=== PATIENT | female | born 1950 | race Caucasian/White ===

== ENCOUNTER 2023-04-24 14:22 | Emergency (ER) | payer MEDICARE, MEDICAID, OTHER ==
[~2023-04-24] VITALS: Ht 157.5 cm; Wt 80.7 kg
--- NOTE | 2023-04-24 14:55 | ED Abdominal Pain ---
General Chief Complaint: General Problems/Pain Stated Complaint: URINARY/BACK/ABD PAIN Nursing Triage Note: PT AMBULATE TO ROOM [facility] WITHOUT DIFFICULTY WITH C/O "PAIN IN BOWELS AND FEMALE ORGANS" X3 MONTHS. PT REPORTS NAUSEA AND DENIES VOMITING. PT REPORTS BURNING WITH URINATION, BLOOD IN URINE AND STOOL. PT SENT FROM [facility]. [facility] PROVIDER STATED THAT SHE WAS UNABLE TO DO ANY TYPE OF EXAMINATION BECAUSE THE PATIENT WAS IN PAIN. History of Present Illness Date Seen by Provider: Apr 24, 2023 Time Seen by Provider: 14:31 Initial Comments 69-year-old female with PMH of HTN/DM2/HLD/CAD with stents placed last y ear/hernia, is sent here from [facility] with complaints of diffuse abdominal and bilateral flank pain with dysuria and hematuria for the past 3 months and has worsened in intensity over the past 3 days. Patient's pain level in the ER is 6/10. Denies fever and chills, diarrhea, constipation, chest pain, palpitations, shortness of breath, nausea and vomiting. Allergies and Home Medications Allergies Coded Allergies: No Allergy Information Available (Unverified , 04/24/23) Patient Home Medication List Home Medication List Reviewed: Yes Review of Systems Review of Systems Constitutional: no symptoms reported EENTM: No Symptoms Reported Respiratory: No Symptoms Reported Cardiovascular: No Symptoms Reported Gastrointestinal: Abdominal Pain Genitourinary: No Symptoms Reported, See HPI, Burning, Flank Pain Musculoskeletal: no symptoms reported Skin: no symptoms reported Psychiatric/Neurological: No Symptoms Reported Endocrine: No Symptoms Reported Hematologic/Lymphatic: No Symptoms Reported Past Ckotqks-Iixarp-Njzwpw Hx Patient Social History Tobacco Use?: No Smoking Status: Never a Smoker Smokeless Tobacco Frequency: Never a User Use of E-Cig and/or Vaping dev: No Use of E-Cig and/or Vaping Chance: Never a User Substance use?: No Alcohol Use?: No Pt feels they are or have been: No Physical Exam Vital Signs Vital Signs - First Documented 04/24/23 14:26 Temp 37.5 Pulse 69 Resp 17 B/P (MAP) 171/92 (118) O2 Delivery Room Air Capillary Refill : Less Than 3 Seconds Height/Weight/BMI Height: '" Weight: lbs. oz. kg; 32.00 BMI Method: General Appearance: WD/WN, no apparent distress (Patient appears comfortable and does not seem to be in any distress) HEENT: PERRL/EOMI Neck: non-tender, full range of motion Respiratory: chest non-tender, lungs clear, normal breath sounds Cardiovascular: regular rate, rhythm Gastrointestinal: normal bowel sounds, soft, no organomegaly, tenderness (Mainly in the suprapubic region, but also mild diffuse tenderness as well. Bilateral CVA tenderness present as well) Extremities: normal range of motion, normal inspection Back: CVA tenderness (R), CVA tenderness (L) Neurologic/Psychiatric: alert, normal mood/affect, oriented x 3 Skin: normal color Lymphatic: no adenopathy Focused Exam Lactate Level 04/24/23 14:45: Lactic Acid Level 1.45 Lactic Acid Level Laboratory Tests Test 04/24/23 14:45 Lactic Acid Level 1.45 MMOL/L (0.50-2.00) Progress/Results/Core Measures Results/Orders Lab Results Laboratory Tests Test 04/24/23 14:45 04/24/23 15:52 Range/Units White Blood Count 14.4 H 4.3-11.0 10^3/uL Red Blood Count 3.52 L 3.80-5.11 10^6/uL Hemoglobin 9.4 L 11.5-16.0 g/dL Hematocrit 31 L 35-52 % Mean Corpuscular Volume 88 80-99 fL Mean Corpuscular Hemoglobin 27 25-34 pg Mean Corpuscular Hemoglobin Concent 30 L 32-36 g/dL Red Cell Distribution Width 17.2 H 10.0-14.5 % Platelet Count 360 130-400 10^3/uL Mean Platelet Volume 9.7 9.0-12.2 fL Immature Granulocyte % (Auto) 1 % Neutrophils (%) (Auto) 80 H 42-75 % Lymphocytes (%) (Auto) 12 12-44 % Monocytes (%) (Auto) 7 0-12 % Eosinophils (%) (Auto) 0 0-10 % Basophils (%) (Auto) 0 0-10 % Neutrophils # (Auto) 11.5 H 1.8-7.8 10^3/uL Lymphocytes # (Auto) 1.7 1.0-4.0 10^3/uL Monocytes # (Auto) 1.0 0.0-1.0 10^3/uL Eosinophils # (Auto) 0.1 0.0-0.3 10^3/uL Basophils # (Auto) 0.0 0.0-0.1 10^3/uL Immature Granulocyte # (Auto) 0.1 0.0-0.1 10^3/uL Neutrophils % (Manual) 81 % Lymphocytes % (Manual) 10 % Monocytes % (Manual) 5 % Eosinophils % (Manual) 1 % Band Neutrophils 3 % Platelet Estimate NORMAL Polychromasia SLIGHT Microcytosis SLIGHT Macrocytosis SLIGHT Prothrombin Time 12.7 12.2-14.7 SEC INR Comment 0.9 0.8-1.4 Activated Partial Thromboplast Time 32 24-35 SEC Sodium Level 138 135-145 MMOL/L Potassium Level 3.9 3.6-5.0 MMOL/L Chloride Level 103 98-107 MMOL/L Carbon Dioxide Level 21 21-32 MMOL/L Anion Gap 14 5-14 MMOL/L Blood Urea Nitrogen 14 7-18 MG/DL Creatinine 0.79 0.60-1.30 MG/DL Estimat Glomerular Filtration Rate 79 BUN/Creatinine Ratio 18 Glucose Level 173 H 70-105 MG/DL Lactic Acid Level 1.45 0.50-2.00 MMOL/L Calcium Level 9.1 8.5-10.1 MG/DL Corrected Calcium 9.2 8.5-10.1 MG/DL Magnesium Level 2.0 1.6-2.4 MG/DL Total Bilirubin 0.2 0.1-1.0 MG/DL Aspartate Amino Transf (AST/SGOT) 12 5-34 U/L Alanine Aminotransferase (ALT/SGPT) 9 0-55 U/L Alkaline Phosphatase 103 40-136 U/L Total Protein 6.5 6.4-8.2 GM/DL Albumin 3.9 3.2-4.5 GM/DL Lipase 19 8-78 U/L Urine Color YELLOW Urine Clarity SL CLOUDY Urine pH 5.5 5-9 Urine Specific [place] 1.015 L 1.016-1.022 Urine Protein NEGATIVE NEGATIVE Urine Glucose (UA) 3+ H NEGATIVE Urine Ketones NEGATIVE NEGATIVE Urine Nitrite NEGATIVE NEGATIVE Urine Bilirubin NEGATIVE NEGATIVE Urine Urobilinogen 0.2 < = 1.0 MG/DL Urine Leukocyte Esterase 1+ H NEGATIVE Urine RBC (Auto) NEGATIVE NEGATIVE Urine RBC NONE /HPF Urine WBC 25-50 H /HPF Urine Squamous Epithelial Cells 5-10 /HPF Urine Crystals NONE /LPF Urine Bacteria TRACE /HPF Urine Casts NONE /LPF Urine Mucus SMALL H /LPF Urine Culture Indicated YES Urine Opiates Screen NEGATIVE NEGATIVE Urine Oxycodone Screen NEGATIVE NEGATIVE Urine Methadone Screen NEGATIVE NEGATIVE Urine Propoxyphene Screen NEGATIVE NEGATIVE Urine Barbiturates Screen NEGATIVE NEGATIVE Ur Tricyclic Antidepressants Screen NEGATIVE NEGATIVE Urine Phencyclidine Screen NEGATIVE NEGATIVE Urine Amphetamines Screen NEGATIVE NEGATIVE Urine Methamphetamines Screen NEGATIVE NEGATIVE Urine Benzodiazepines Screen NEGATIVE NEGATIVE Urine Cocaine Screen NEGATIVE NEGATIVE Urine Cannabinoids Screen NEGATIVE NEGATIVE My Orders Orders - ASHLEY ELY MD Drug Screen Stat (Urine) (04/24/23 14:32) Ua Culture If Indicated (04/24/23 14:32) Cbc With Automated Diff (04/24/23 14:46) Comprehensive Metabolic Panel (04/24/23 14:46) Lactic Acid Analyzer (04/24/23 14:46) Lipase (04/24/23 14:46) Magnesium (04/24/23 14:46) Protime With Inr (04/24/23 14:46) Partial Thromboplastin Time (04/24/23 14:46) Ct Abdomen/Pelvis W (04/24/23 14:47) Manual Differential (04/24/23 14:45) Iohexol Injection (Omnipaque 350 Mg/Ml 1 (04/24/23 15:45) Received Contrast (Hold Metformin- Contr (04/24/23 15:45) Ns (Ivpb) (Sodium Chloride 0.9% Ivpb Bag (04/24/23 15:45) Urine Culture (04/24/23 15:52) Vital Signs/I&O 04/24/23 14:26 Temp 37.5 Pulse 69 Resp 17 B/P (MAP) 171/92 (118) O2 Delivery Room Air Blood Pressure Mean: 118 Progress Progress Note : Progress Note 1. ACUTE ON CHRONIC DIVERTICULITIS & ACUTE CYSTITIS WITHOUT HEMATURIA: - CT ABD/ PELVIS: Acute sigmoid diverticulitis without abscess, obstruction,free air, or fistula. Renal cysts with no hydronephrosis or acute urinary tract pathology. - UA: positive for leukocyte esterase, WBC, trace bacteria - UDS negative - CBC: WBC is elevated at 14.4 with a left shift - CMP: unremarkable - Lipase negative - Toradol 15mg iv for pain, with improvement of symptoms -Prescriptions given for Bactrim DS and Flagyl twice daily for 10 days. This will cover both the diverticulitis and the UTI. -Advised liquid diet and adequate hydration -Follow-up with general surgery clinic in 7 to 10 days. Patient will be making an appointment at [facility]. -The patient was seen in the ED, and treated appropriately to presentation at a specific point in time. Patient is informed that there is a possibility that disease and illness can evolve and change in acuity rapidly or slowly after patient is discharged from the ER. Precautionary advice given to the patient for immediate return to ER if symptoms worsen or do not resolve, and to seek emergency care sooner rather than later. Pt also advised on the importance of PCP follow up and compliance with management and follow up plan with PCP and/or specialist, as this is part of the management plan. Pt verbally expressed understanding. Diagnostic Imaging Diagonstic Imaging: CT Plain Films/CT/US/NM/MRI: abdomen, pelvis Comments [facility] [employer] [facility] [place], [place] NAME: MICHELLE ATKINSON [facility] REC#: [id number] PT STATUS: REG ER : 1950 PHYSICIAN: ASHLEY ELY MD ADMIT DATE: 04/24/23/ER FS Draft Date of Exam:04/24/23 CT ABDOMEN/PELVIS W PROCEDURE: CT abdomen and pelvis with contrast. TECHNIQUE: Multiple contiguous axial images were obtained through the abdomen and pelvis after administration of intravenous contrast. Auto Exposure Controls were utilized during the CT exam to meet ALARA standards for radiation dose reduction. All CT scans use one or more of the following dose optimizing techniques: automated exposure control, MA and/or KvP adjustment based on patient size and exam type or iterative reconstruction. INDICATION: 3 month history of bilateral flank pain. FINDINGS: The findings are most consistent with acute sigmoid diverticulitis at the midline pelvis involving its lower 3rd. There is perisigmoidal stranding, edema, and a thickened inflamed diverticulum directed anteriorly. No extraluminal air or findings of transmural perforation. No findings of fistula to the bladder or other fistula. No abscess or drainable fluid collection. The urinary tracts are unobstructed with multiple right renal cortical and parapelvic cysts. The liver, gallbladder, bile ducts, spleen, adrenals, and pancreas are negative. There is a small hiatal hernia. There are nonaneurysmal aortoiliac atherosclerotic vascular calcifications. No features of acute end organ ischemia. There is rectus diastasis with prior surgical repair of the infraumbilical midline anterior abdominal wall with nonobstructing ventral hernia inferiorly. IMPRESSION: 1. Acute sigmoid diverticulitis without abscess, obstruction, free air, or fistula. 2. Renal cysts with no hydronephrosis or acute urinary tract pathology. Dictated on workstation # [id number] Dict: 04/24/23 1557 Trans: 04/24/23 1605 [id number] Interpreted by: LIZET ORTEGA Electronically signed by: Departure Impression Primary Impression: Acute diverticulitis of intestine Additional Impression: Acute cystitis without hematuria Disposition: HOME, SELF-CARE Condition: Stable Departure-Patient Inst. Referrals: CRISPIN WILCOX MD (PCP) Primary Care Physician Patient Instructions: Urinary Tract Infection, Adult (DC), Diverticulitis (DC) Add. Discharge Instructions: -Prescriptions given for Bactrim DS and Flagyl twice daily for 10 days -Advised liquid diet and adequate hydration -Follow-up with general surgery clinic in 7 to 10 days. Patient will be making an appointment at [facility]. All discharge instructions reviewed with patient and/or family. Voiced understanding. Scripts Metronidazole (Metronidazole) 500 Mg Tablet 500 MG PO BID for 10 Days, #20 TAB Prov: ASHLEY ELY MD 04/24/23 Sulfamethoxazole/Trimethoprim (Bactrim Ds Tablet) 1 Each Tablet 1 EACH PO BID for 10 Days, #20 TAB Prov: ASHLEY ELY MD 04/24/23 ASHLEY ELY MD Apr 24, 2023 14:55
[2023-04-24 15:07] LABS: BASOPHILS % (AUTO) 0 % (0-10); EOSINOPHILS # (AUTO) 0.1 10^3/uL (0.0-0.3); EOSINOPHILS % (AUTO) 0 % (0-10); HEMATOCRIT 31 % (35-52); HEMOGLOBIN 9.4 g/dL (11.5-16.0); LYMPHOCYTES # (AUTO) 1.7 10^3/uL (1.0-4.0); LYMPHOCYTES % (AUTO) 12 % (12-44); MEAN CORPUSCULAR HEMOGLOBIN 27 pg (25-34); MEAN CORPUSCULAR HGB CONC 30 g/dL (32-36); MEAN CORPUSCULAR VOLUME 88 fL (80-99); MEAN PLATELET VOLUME 9.7 fL (9.0-12.2); MONOCYTES % (AUTO) 7 % (0-12); NEUTROPHILS # (AUTO) 11.5 10^3/uL (1.8-7.8); NEUTROPHILS % (AUTO) 80 % (42-75); PLATELET COUNT 360 10^3/uL (130-400); WHITE BLOOD COUNT 14.4 10^3/uL (4.3-11.0)
[2023-04-24 15:23] LABS: BAND NEUTROPHILS 3 %; EOSINOPHILS % (MANUAL) 1 %; LYMPHOCYTES % (MANUAL) 10 %; MONOCYTES % (MANUAL) 5 %; NEUTROPHILS % (MANUAL) 81 %; PLATELET ESTIMATE NORMAL; POLYCHROMASIA SLIGHT
[2023-04-24 15:24] LABS: MICROCYTOSIS SLIGHT
[2023-04-24 15:29] LABS: INR 0.9 (0.8-1.4); PROTHROMBIN TIME PATIENT 12.7 SEC (12.2-14.7)
[2023-04-24 15:31] LABS: POTASSIUM 3.9 MMOL/L (3.6-5.0)
[2023-04-24 15:32] LABS: ALBUMIN 3.9 GM/DL (3.2-4.5); BILIRUBIN,TOTAL 0.2 MG/DL (0.1-1.0); CALCIUM 9.1 MG/DL (8.5-10.1); CREATININE SERUM 0.79 MG/DL (0.60-1.30); TOTAL PROTEIN 6.5 GM/DL (6.4-8.2)
[2023-04-24] MEDS ORDERED: IOHEXOL 350 MG/ML 100 ML (OMNIPAQUE 350) VIAL IV ONE (15:45)
[2023-04-24] MEDS ORDERED: NS 100 ML (IVPB) BAG IV ONE (15:45)
[2023-04-24] MEDS ORDERED: HOLD METFORMIN - RECEIVED CONTRAST 20 ML VIAL IV SCH (15:45)
[2023-04-24 15:57] LABS: BILIRUBIN,URINE NEGATIVE (NEGATIVE); CLARITY,URINE SL CLOUDY; COLOR,URINE YELLOW; GLUCOSE, URINE (UA) 3+ (NEGATIVE); KETONES,URINE NEGATIVE (NEGATIVE); NITRITE,URINE NEGATIVE (NEGATIVE); PH,URINE 5.5 (5-9); PROTEIN,URINE NEGATIVE (NEGATIVE)
[2023-04-24 16:04] LABS: BACTERIA,URINE TRACE /HPF; LEUKOCYTE ESTERASE ,URINE 1+ (NEGATIVE); WBC,URINE 25-50 /HPF
[2023-04-24 16:06] LABS: AMPHETAMINE SCREEN, URINE NEGATIVE (NEGATIVE); BARBITURATE SCREEN URINE NEGATIVE (NEGATIVE); BENZODIAZEPINES SCREEN URINE NEGATIVE (NEGATIVE); CANNABINOID SCREEN, URINE NEGATIVE (NEGATIVE); COCAINE SCREEN URINE NEGATIVE (NEGATIVE); METHADONE STAT NEGATIVE (NEGATIVE); OPIATE SCREEN URINE NEGATIVE (NEGATIVE); OXYCODONE STAT NEGATIVE (NEGATIVE); PROPOXYPHENE STAT NEGATIVE (NEGATIVE); TRICYCLIC ANTIDEPRESSANTS SCRE NEGATIVE (NEGATIVE)
--- NOTE | 2023-04-24 16:06 | Diagnostic Imaging Report ---
PROCEDURE: CT abdomen and pelvis with contrast. TECHNIQUE: Multiple contiguous axial images were obtained through the abdomen and pelvis after administration of intravenous contrast. Auto Exposure Controls were utilized during the CT exam to meet ALARA standards for radiation dose reduction. All CT scans use one or more of the following dose optimizing techniques: automated exposure control, MA and/or KvP adjustment based on patient size and exam type or iterative reconstruction. INDICATION: 3 month history of bilateral flank pain. FINDINGS: The findings are most consistent with acute sigmoid diverticulitis at the midline pelvis involving its lower 3rd. There is perisigmoidal stranding, edema, and a thickened inflamed diverticulum directed anteriorly. No extraluminal air or findings of transmural perforation. No findings of fistula to the bladder or other fistula. No abscess or drainable fluid collection. The urinary tracts are unobstructed with multiple right renal cortical and parapelvic cysts. The liver, gallbladder, bile ducts, spleen, adrenals, and pancreas are negative. There is a small hiatal hernia. There are nonaneurysmal aortoiliac atherosclerotic vascular calcifications. No features of acute end organ ischemia. There is rectus diastasis with prior surgical repair of the infraumbilical midline anterior abdominal wall with nonobstructing ventral hernia inferiorly. IMPRESSION: 1. Acute sigmoid diverticulitis without abscess, obstruction, free air, or fistula. 2. Renal cysts with no hydronephrosis or acute urinary tract pathology. Dictated by: Dictated on workstation # [id number]
[2023-04-24] MEDS ORDERED: KETOROLAC 15 MG/ML VIAL IVP ONE (16:30)
[2023-04-24] MEDS ORDERED: SULF1TAB38 PO (16:41)
[2023-04-24] MEDS ORDERED: METR-145 PO (16:41)
[2023-04-24 16:46] VITALS: BP 143/76
== END 2023-04-24 16:46 | disposition home or self-care (01) ==
LOC: ER FS 14:24
DX: K57.32 Diverticulitis of large intestine without perforation or abscess without bleeding (principal); N30.00 Acute cystitis without hematuria
CPT/HCPCS: 36415; 74177; 80053; 80306; 81000; 83605; 83690; 83735; 85007; 85027; 85610; 85730; 87088